=== PATIENT | female | born 1950 | race Caucasian/White ===

== ENCOUNTER → 2016-03-14 | Day surgery (SDC) | payer OTHER ==
[~2016-03-14] MED LIST: ACETAMINOPHEN 1000 MG/100 ML VIAL IV ONE; ACETAMINOPHEN/HYDROcodone 325 MG/5 MG TAB ONE; AMIT10 PO; BACITRACIN IM FOR SOLN 50,000 UNIT VIAL ONE; BACL10TA PO; BIMA0.03 TD; BUPIVACAINE/EPINEPHRINE 0.25% 50 ML VIAL ONE; CALC500T19 PO; DIAZ5 PO; ESZO2 PO; GENTAMICIN SULFATE 80 MG/2 ML VIAL ONE; HYDR-3129 PO; HYDR-3580 PO; LACTATED RINGER'S 1000 ML INJ 1,000 ML ONE; LIDOCAINE 1%/EPINEPHrine 1:100,000 SOLN 20 ML VIAL ONE; MEPERIDINE HCL 25 MG/ML VIAL ONE; MIDAZOLAM HCL 2 MG/2 ML VIAL ONE; MULTCAP PO; ONDANSETRON HCL 4 MG/2 ML VIAL IV PUSH ONE; PERC10TA27 PO; PROPOFOL 200 MG/20 ML AMP IV ONE; SODIUM CHLORIDE 0.9% 20 ML VIAL ONE; VITA100T5 PO; VITA250L PO; XANA0.5T PO; [UNRECOGNIZED DRUG - CODE] TD; [UNRECOGNIZED DRUG - OTHER] PO; ceFAZolin INJ 1,000 MG VIAL ONE
--- NOTE | 2016-03-14 10:07 | TN ---
cc: TRAY CASTRO M.D. DATE OF SURGERY 03/14/2016 PREOPERATIVE DIAGNOSIS Status post augmentation mammoplasty with dislike in regards to volume and shape. POSTOPERATIVE DIAGNOSIS Status post augmentation mammoplasty with dislike in regards to volume and shape. PROCEDURE Removal, replacement implants, bilateral capsulorrhaphies, superomedial capsulotomies and re-augmentation with circumvertical mastopexy. SURGEON Tray Castro MD/JOSÉ ANESTHESIA LMA general, I also utilized 60 cc of 1% lidocaine with epinephrine mixed with 0.25% Marcaine in a 2:1 ratio. COMPLICATIONS None DRAINS None IMPLANT DATA Natmichellee Inspire SRS 295 cc. The serial number of the right breast device [id number] and the serial number for the left breast implant device is [id number]. It needs to be mentioned, that we removed an Allergan device what appears to be a high-profile 440 cc. PROCEDURE She was properly consented, marked, properly anesthetized. The skin was skin was sterilized with Betadine solution. Local anesthetic was infiltrated. Through an inferior areolar vertical incision, the pocket was encountered and the implant removed intact. Irrigation with triple antibiotic solution was properly carried out and lateral, inferior and medial capsulorrhaphies were done in multiple layers of 0 silk. Then the isolation of the skin and nipple areola was properly ensued and the implant was introduced utilizing a no-touch technique. The contralateral side was approached exactly in the same manner. As the patient was sat up according to previous markings where the NAC was set about 9-1/2 to 20 cm from the sternal notch, 42 mm areolar diameter centered the areolar and I proceeded to perform a lift utilizing tailor-tack technique utilizing surgical jennifer. The skin was properly marked, the jennifer removed, the skin thereafter was de-epithelized and the vertical horizontal incision was properly closed utilizing 2-0 Monocryl suture in the dermis and subcu and the nipple areolar complex was brought up utilizing the pinwheel technique utilizing 2-0 PTFE reinforced with 2-0 Quill suture. Prineo Dermabond was utilized to reinforce the wounds. Obviously, the contralateral side was approached in exactly the same manner. With this, I put some absorbent dressings with a snug brassiere. Good viability of all the tissue was noted at the end of the case and the patient was awakened and extubated in the operating room, transferred back to the Post-Anesthesia Care Unit in stable condition. There were no complications appreciated. The patient tolerated the procedure fairly well. MD KIRSTIN Starr/GABRIELLA /9:48 AM /9:53 AM
== END | disposition home or self-care (01) ==
LOC: ESDC 06:17
PROVIDERS: ATTEND Plastic Surgery
DX: Z41.1 Encounter for cosmetic surgery (principal)
CPT/HCPCS: 00400; 00402; 19316; 19325; 19328; J0131; J0690; J1580; J2175; J2250; J2405; J3010; J7120; C1789